=== PATIENT | female | born 1970 | race American Indian/Alaskan Native ===

== ENCOUNTER 2018-11-28 04:06 | Emergency (ER) | payer OTHER ==
[2018-11-28 04:07] VITALS: BMI 36.6
--- NOTE | 2018-11-28 04:39 | ED PDOC ---
Arrival/HPI - General Chief Complaint: Back Pain Time Seen by Provider: 11/28/18 04:16 Historian: Patient - History of Present Illness Narrative History of Present Illness (Text): 11/28/18 04:39 Stacy Kowalski is a 48 year old female, whose past medical history includes chronic asthma, who presents to the Emergency department complaining of wheezing, chest congestion, chills, and right-ear pain. Patient states symptoms are consistent with previous episodes of asthma. Patient notes she took Symbicort today with no significant improvement. Patient denies any shortness of breath, nausea, vomiting, diarrhea, urinary symptoms, back pain, neck pain, headache, dizziness, or any other complaints. Symptom Onset: Gradual Symptom Course: Unchanged Activities at Onset: Light Context: Home Past Medical History - Provider Review Nursing Documentation Reviewed: Yes - Infectious Disease Hx of Infectious Diseases: None - Tetanus Immunization Tetanus Immunization: Unknown - Cardiac Hx Cardiac Disorders: No - Pulmonary Hx Respiratory Disorders: Yes Hx Asthma: Yes - Neurological Hx Neurological Disorder: No - HEENT Hx HEENT Disorder: No - Renal Hx Renal Disorder: No - Endocrine/Metabolic Hx Endocrine Disorders: No Hx Adrenal Cancer: No - Hematological/Oncological Hx Blood Disorders: No - Integumentary Hx Dermatological Disorder: No - Musculoskeletal/Rheumatological Hx Falls: Yes (fell on sidewalk today) - Gastrointestinal Hx Gastrointestinal Disorders: No - Genitourinary/Gynecological Hx Genitourinary Disorders: No - Psychiatric Hx Psychophysiologic Disorder: No Hx Emotional Abuse: No Hx Physical Abuse: No Hx Substance Use: No - Past Surgical History Past Surgical History: No Previous - Anesthesia Hx Anesthesia: No - Suicidal Assessment Feels Threatened In Home Enviroment: No Family/Social History - Physician Review Nursing Documentation Reviewed: Yes Family/Social History: Unknown Family HX Smoking Status: Unknown If Ever Smoked Hx Alcohol Use: No Hx Substance Use: No Hx Substance Use Treatment: No Allergies/Home Meds Allergies/Adverse Reactions: Allergies aspirin Adverse Reaction (Verified 11/28/18 04:17) WHEEZING ketorolac [From Toradol] Adverse Reaction (Verified 11/28/18 04:17) WHEEZING Home Medications: Home Meds Medication Instructions Recorded Confirmed Budesonide/Formoterol Fumarate 1 aer IH DAILY 07/30/13 11/28/18 [Symbicort 80-4.5 Mcg Inhaler] Review of Systems - Physician Review All systems were reviewed & negative as marked: Yes - Review of Systems Constitutional: Other (+chills). absent: Fevers Eyes: Normal ENT: Other (+right ear pain) Respiratory: Wheezing Cardiovascular: Normal. absent: Chest Pain Gastrointestinal: Normal. absent: Abdominal Pain, Diarrhea, Nausea Genitourinary Female: Normal. absent: Dysuria, Frequency, Hematuria, Urine Output Changes Musculoskeletal: Normal. absent: Back Pain, Neck Pain Skin: Normal. absent: Rash Neurological: Normal Endocrine: Normal Hemo/Lymphatic: Normal Psychiatric: Normal Physical Exam Vital Signs Reviewed: Yes Vital Signs Temp Pulse Resp BP Pulse Ox 11/28/18 04:15 98.1 F 80 16 146/96 H 98 Temperature: Afebrile Blood Pressure: Hypertensive Pulse: Regular Respiratory Rate: Normal Appearance: Positive for: Well-Appearing, Non-Toxic, Comfortable Pain Distress: None Mental Status: Positive for: Alert and Oriented X 3 - Systems Exam Head: Present: Atraumatic, Normocephalic Pupils: Present: PERRL Extroacular Muscles: Present: EOMI Conjunctiva: Present: Normal Ears: Present: Normal, NORMAL TM, Normal Canal. No: Erythema, TM Bulging, Fluid, TM Perf Mouth: Present: Moist Mucous Membranes Pharnyx: Present: Normal. No: ERYTHEMA, EXUDATE, TONSILS ENLARGED, Peritonsilar Swelling, Uvular Deviation, Muffled/Hoarse Voice, Strider, Soft Palate/Uvular Edema Nose (External): Present: Atraumatic Nose (Internal): Present: Normal Inspection Neck: Present: Normal Range of Motion. No: Meningeal Signs, MIDLINE TENDERNESS, Paraspinal Tenderness Respiratory/Chest: Present: Clear to Auscultation, Good Air Exchange. No: Respiratory Distress, Accessory Muscle Use Cardiovascular: Present: Regular Rate and Rhythm, Normal S1, S2. No: Murmurs Abdomen: No: Tenderness, Distention, Peritoneal Signs Back: Present: Normal Inspection. No: CVA Tenderness, Midline Tenderness, Paraspinal Tenderness Upper Extremity: Present: Normal Inspection. No: Cyanosis, Edema Lower Extremity: Present: Normal Inspection. No: Edema Neurological: Present: GCS=15, CN II-XII Intact, Speech Normal Skin: Present: Warm, Dry, Normal Color. No: Rashes Psychiatric: Present: Alert, Oriented x 3, Normal Insight, Normal Concentration Medical Decision Making ED Course and Treatment: 11/28/18 04:39 Impression: 48 year old female complaining of chills, wheezing, and chest tightness. Plan: -- EKG -- Chest X-ray -- Rapid influenza -- Albuterol -- Reassess and disposition Progress Notes: Reviewed EKG, NSR at 75 bpm[address] Non-specific ST/T wave changes. 11/28/18 07:10 CXR reviewed, shows no acute processes. Rapid influenza negative. 11/28/18 07:16 On re-evaluation, patient feels better and is in no acute distress. I have discussed the results and plan with the patient, who expresses understanding. Patient in agreement with plan to be discharged home. Patient is stable for discharge. Patient was instructed to follow up with physician or return if symptoms worsen or new concerning symptoms arise. - Lab Interpretations Narrative Lab Interpretation (Text): 11/28/18 05:33 I have reviewed the lab results: Yes - RAD Interpretation Camp Attendant: ED Physician - EKG Interpretation Interpreted by ED Physician: Yes Type: 12 lead EKG - Scribe Statement The provider has reviewed the documentation as recorded by the Scribe Patti Brewer Provider Scribe Attestation: All medical record entries made by the Scribe were at my direction and personally dictated by me. I have reviewed the chart and agree that the record accurately reflects my personal performance of the history, physical exam, medical decision making, and the department course for this patient. I have also personally directed, reviewed, and agree with the discharge instructions and disposition. Disposition/Present on Arrival - Present on Arrival History of DVT/PE: No History of Uncontrolled Diabetes: No Urinary Catheter: No History of Decub. Ulcer: No History Surgical Site Infection Following: None - Disposition Diagnosis: Otitis media of right ear, Chest pain Disposition: HOME/ ROUTINE Disposition Time: 07:16 Patient Problems: Current Active Problems Problem Status Onset Chest pain Acute Otitis media of right ear Acute Discharge Instructions (ExitCare): Chest Pain That Is Not Caused by the Heart (DC), Ear Infections (Otitis Media) (DC), Chest Pain (ED) Prescriptions: Amoxicillin 875 mg PO BID #20 tab Forms: [employer] (Mauritanian)
[2018-11-28] MEDS ORDERED: Albuterol-Ipratrop 3 mg / 0.5 (3 ml) UD IH STA (04:44)
[2018-11-28 07:19] VITALS: BP 167/87; PULSE 77; RESP 18; TEMP 98.5; O2SAT 100
--- NOTE | 2018-11-28 09:41 | RAD ---
Date of service: 11/28/2018 HISTORY: sob COMPARISON: 07/30/2013 TECHNIQUE: Chest PA and lateral FINDINGS: LUNGS: No active pulmonary disease. PLEURA: No significant pleural effusion identified. No pneumothorax apparent. CARDIOVASCULAR: No aortic atherosclerotic calcification present. Normal cardiac size. No pulmonary vascular congestion. OSSEOUS STRUCTURES: No significant abnormalities. VISUALIZED UPPER ABDOMEN: Normal. OTHER FINDINGS: None. IMPRESSION: No active disease.
--- NOTE | 2018-11-28 12:36 | CARD ---
APPROVED REPORT Date of service: 11/28/2018 EKG Measurement Heart [id number] <Conclusion> Normal sinus rhythm Possible Left atrial enlargement LVH NSSTW changes Prolonged QTc
== END 2018-11-28 07:31 | disposition home or self-care (01) ==
LOC: ED 04:06
DX: H66.91 Otitis media, unspecified, right ear (principal); R07.89 Other chest pain

== ENCOUNTER 2019-03-06 13:25 | Emergency (ER) | payer OTHER ==
[2019-03-06 13:26] VITALS: BMI 36.6
[2019-03-06 13:48] VITALS: TEMP 98.4
--- NOTE | 2019-03-06 14:24 | ED PDOC ---
Arrival/HPI - General Chief Complaint: Shortness Of Breath Time Seen by Provider: 03/06/19 13:27 Historian: Patient - History of Present Illness Narrative History of Present Illness (Text): 03/06/19 13:27 Pt is a 48 y/o female, with a past medical history of asthma, who presents to the emergency department complaining of localized left flank pain since 2 days. Patient denies any trauma or physical activity to cause pain. She informs no previous history of current symptoms in her lifetime. Pt reports increased urinary frequency. Patient also notes wheezing and shortness of breath prior to arrival which has resolved in the ED. Patient denies fevers, chills, night sweats, vision changes, headache, dizziness, cough, chest pain, diarrhea, nausea, vomiting, bloody stool, dysuria, hematuria, back pain, neck pain, rash, diaphoresis, or any other complaint. Time/Duration: < week (2 days ) Symptom Onset: Sudden Symptom Course: Unchanged Activities at Onset: Light Context: Home Past Medical History - Provider Review Nursing Documentation Reviewed: Yes - Infectious Disease Hx of Infectious Diseases: None - Tetanus Immunization Tetanus Immunization: Unknown - Reproductive Menopause: No - Cardiac Hx Cardiac Disorders: No - Pulmonary Hx Respiratory Disorders: Yes Hx Asthma: Yes - Neurological Hx Neurological Disorder: No - HEENT Hx HEENT Disorder: No - Renal Hx Renal Disorder: No - Endocrine/Metabolic Hx Endocrine Disorders: No Hx Adrenal Cancer: No - Hematological/Oncological Hx Blood Disorders: No - Integumentary Hx Dermatological Disorder: No - Musculoskeletal/Rheumatological Hx Falls: Yes (fell on sidewalk today) - Gastrointestinal Hx Gastrointestinal Disorders: No - Genitourinary/Gynecological Hx Genitourinary Disorders: No - Psychiatric Hx Psychophysiologic Disorder: No Hx Emotional Abuse: No Hx Physical Abuse: No Hx Substance Use: No - Past Surgical History Past Surgical History: No Previous - Anesthesia Hx Anesthesia: No - Suicidal Assessment Feels Threatened In Home Enviroment: No Family/Social History - Physician Review Nursing Documentation Reviewed: Yes Family/Social History: Other (renal calculi) Smoking Status: Unknown If Ever Smoked Hx Alcohol Use: No Hx Substance Use: No Hx Substance Use Treatment: No Allergies/Home Meds Allergies/Adverse Reactions: Allergies aspirin Adverse Reaction (Verified 11/28/18 04:17) WHEEZING ketorolac [From Toradol] Adverse Reaction (Verified 11/28/18 04:17) WHEEZING Home Medications: Home Meds Medication Instructions Recorded Confirmed Budesonide/Formoterol Fumarate 1 aer IH DAILY 07/30/13 11/28/18 [Symbicort 80-4.5 Mcg Inhaler] Review of Systems - Review of Systems Constitutional: absent: Fevers, Night Sweats, Other (chills) Eyes: absent: Vision Changes Respiratory: SOB, Wheezing. absent: Cough Cardiovascular: absent: Chest Pain Gastrointestinal: absent: Abdominal Pain, Diarrhea, Nausea, Vomiting, Hematochezia Genitourinary Female: Frequency (increased urinary frequency), Other (left flank pain). absent: Dysuria, Hematuria Musculoskeletal: absent: Back Pain, Neck Pain Skin: absent: Rash Neurological: absent: Headache, Dizziness Physical Exam - Physical Exam Narrative Physical Exam (Text): 03/06/19 13:27 Gen: VS reviewed, alert, well developed, well nourished, nontoxic, mild distress. ENT: normal pharynx. Eye: EOMI, PERRL. Neck: no JVD, supple, no adenopathy. CV: regular rate, regular rhythm, no rubs, no murmur, no gallops, S1, S2, pulses equal and strong. Pulm/Chest: Mild to moderate left lateral lower rib cage tenderness to palpation with no underlying rash. No distress, clear to auscultation, no wheeze, no rhonchi, breath sounds equal, no rales. Abd: soft, nontender, no guarding, no rebound, no rigidity, normal bowel sounds. Ext: no edema. Skin: good color, no rash, no cyanosis. Psych: responds appropriately to questions, normal affect. Neuro: oriented x 3, CN2-12 intact grossly, motor intact, sensation intact. Vital Signs Reviewed: Yes Vital Signs Temp Pulse Resp BP Pulse Ox 03/06/19 13:42 98.4 F 94 H 20 140/82 100 Temperature: Afebrile Blood Pressure: Normal Pulse: Regular Respiratory Rate: Normal Appearance: Positive for: Well-Appearing, Non-Toxic, Comfortable Pain Distress: None Mental Status: Positive for: Alert and Oriented X 3 Medical Decision Making ED Course and Treatment: 03/06/19 13:56 Will work up for left flank pain. Ordering CT to rule out renal colic; patient appreciates positive family history 03/06/19 18:32 patient was given explanation that she is moderately anemic and that blood transfusion and admission is indicated. patient has flipped back and forth multiple times whether or not she wants to proceed with admission or transfusion as she needs her daughter to assist with medical decisions. the patient has ultimately decided she does not want a blood transfusion-patient was informed that it is important to follow up with her primary care doctor for the anemia. patient has also been hesistant in the same manner with CT. the patient has ultimately decided she would like to proceed with CT. 03/06/19 19:[address] meyer - RAD Interpretation Radiology Orders: 03/06/19 13:56 ABDOMEN & PELVIS [ABD & PELVIS W/O PO OR IV CONT] [CT] Stat - Medication Orders Current Medication Orders: Discontinued Medications Acetaminophen (Tylenol 325mg Tab) 975 mg PO STAT STA Stop: 03/06/19 13:58 - Scribe Statement The provider has reviewed the documentation as recorded by the Scribe Zelalem Gandhi All medical record entries made by the Scribe were at my direction and personally dictated by me. I have reviewed the chart and agree that the record accurately reflects my personal performance of the history, physical exam, medical decision making, and the department course for this patient. I have also personally directed, reviewed, and agree with the discharge instructions and disposition. Disposition/Present on Arrival - Present on Arrival Any Indicators Present on Arrival: No History of DVT/PE: No History of Uncontrolled Diabetes: No Urinary Catheter: No History of Decub. Ulcer: No History Surgical Site Infection Following: None - Disposition Have Diagnosis and Disposition been Completed?: Yes Diagnosis: Anemia, Fibroid uterus Disposition: HOME/ ROUTINE Disposition Time: 13:22 (not actual) Patient Plan: Discharge Condition: GUARDED Discharge Instructions (ExitCare): Anemia Caused by Low Iron, Uterine Fibroids (DC) Additional Instructions: you must follow up with your primary care doctor for complete evaluation of your low hemoglobin (anemia). Prescriptions: Budesonide/Formoterol Fumarate [Symbicort] 1 aer IH DAILY #1 aer Ferrous Sulfate [Ferosul] 325 mg PO DAILY #14 tablet Forms: [email or web address] (Maltese), WORK NOTE
[2019-03-06 15:37] LABS: BASO # 0.04 K/mm3 (0.0-2.0); BASO % 0.5 % (0.0-3.0); EOS # 0.3 (0.0-0.7); EOS % 3.1 % (1.5-5.0); HEMOGLOBIN 7.2 g/dL (12.0-16.0); LYMPH # 2.1 (1.2-3.4); LYMPH % 25.4 % (22.0-35.0); MEAN CELL VOLUME 69.2 fl (80.0-105.0); MEAN CORPUSCULAR HEMOGLOBIN 18.9 pg (25.0-35.0); MEAN CORPUSCULAR HGB CONC 27.4 g/dl (31.0-37.0); MEAN PLATELET VOLUME 8.6 fl (7.0-11.0); MONO # 0.5 (0.1-0.6); MONO % 6.5 % (1.0-6.0); RBC 3.8 10^6/uL (3.5-6.1); RED CELL DISTRIBUTION WIDTH 19.1 % (11.5-14.5); WHITE BLOOD COUNT 8.1 10^3/uL (4.5-11.0)
[2019-03-06 16:24] LABS: ALB/GLOB RATIO 1.1 (1.1-1.8); ALBUMIN 3.7 g/dL (3.0-4.8); ALT/SGPT 20 U/L (7-56); AST/SGOT 24 U/L (14-36); BLOOD UREA NITROGEN 12 mg/dL (7-21); CALCIUM 8.5 mg/dL (8.4-10.5); GFR NON-AFRICAN AMERICAN > 60
[2019-03-06 16:53] LABS: URINE BILIRUBIN NEGATIVE (NEGATIVE); URINE BLOOD TRACE-INTACT (NEGATIVE); URINE GLUCOSE (UA) NEGATIVE (NEGATIVE); URINE LEUKOCYTE ESTERASE NEGATIVE Leu/uL (NEGATIVE); URINE PROTEIN NEGATIVE mg/dL (<30 mg/dL); URINE UROBILINOGEN 0.2 E.U./dL (<1 E.U./dL)
[2019-03-06 16:54] LABS: URINE APPEARANCE CLEAR (CLEAR); URINE COLOR YELLOW (YELLOW)
[2019-03-06 17:06] LABS: URINE BACTERIA FEW /hpf
[2019-03-06 18:04] VITALS: RESP 18
--- NOTE | 2019-03-06 20:36 | ED PDOC ---
Physical Exam Vital Signs Temp Pulse Resp BP Pulse Ox 03/06/19 18:04 77 18 136/70 99 03/06/19 13:42 98.4 F 94 H 20 140/82 100 Medical Decision Making ED Course and Treatment: 03/06/19 19:00 Case endorsed to me by Dr. Mathew, pending CT, re-evaluation, and disposition. 03/06/19 21:48 CT Abdomen and Pelvis: LUNG BASES: The lung bases appear clear. No pleural effusions are seen. LIVER: Unremarkable. GALLBLADDER AND BILE DUCTS: The gallbladder appears within normal limits. No radioopaque gallstones are seen. No biliary ductal dilatation is evident. PANCREAS: Unremarkable. SPLEEN: Unremarkable. ADRENAL GLANDS: Unremarkable. KIDNEYS, URETERS, AND BLADDER: The kidneys appear within normal limits. There is no hydronephrosis or hydroureter. No urinary calculi are seen. The urinary bladder appeared normal in size and configuration. STOMACH AND BOWEL: Unremarkable appearance of the stomach and bowel. No evidence of bowel obstruction. No evidence suggesting enteritis or colitis. APPENDIX: No evidence of acute appendicitis on CT examination. PERITONEUM: No free fluid. No free air. LYMPH NODES: No lymphadenopathy is evident. REPRODUCTIVE: The uterine fundus is enlarged and bulbous which could be compatible with a large fibroid. The uterus measures approximately 15.7 x 10.1 x 12.4 cm in longitudinal, AP and transverse dimensions respectively. The possibility of adenomyosis should be considered. VASCULATURE: No evidence of abdominal aortic aneurysm. BONES: No aggressive appearing osseous lesion. No acute osseous pathology evident. IMPRESSION: 1. No acute intra-abdominal or pelvic abnormality. 2. Uterine enlargement with bulbous configuration of the uterine fundus. This could be compatible with a large uterine fibroid. Adenomyosis should also be considered. Electronically signed on Mar 06, 2019 9:45:06 PM EDT by: Zelalem Navas M.D., M.B.A., Certified By [employer] Trained MRI and CT Specialist pt improved will follow up with cloth trimmer hand - Lab Interpretations Lab Results: Total Bilirubin 0.4 mg/dL (0.2-1.3) 03/06/19 15:30 AST 24 U/L (14-36) 03/06/19 15:30 ALT 20 U/L (7-56) 03/06/19 15:30 Alkaline Phosphatase 49 U/L (38-126) 03/06/19 15:30 Total Protein 7.0 g/dL (5.8-8.3) 03/06/19 15:30 Albumin 3.7 g/dL (3.0-4.8) 03/06/19 15:30 Globulin 3.3 gm/dL 03/06/19 15:30 Albumin/Globulin Ratio 1.1 (1.1-1.8) 03/06/19 15:30 Urine Color Yellow (YELLOW) 03/06/19 16:20 Urine Appearance Clear (CLEAR) 03/06/19 16:20 Urine pH 6.0 (4.7-8.0) 03/06/19 16:20 Ur Specific Donald 1.025 (1.005-1.035) 03/06/19 16:20 Urine Protein Negative mg/dL (<30 mg/dL) 03/06/19 16:20 Urine Glucose (UA) Negative mg/dL (NEGATIVE) 03/06/19 16:20 Urine Ketones Negative mg/dL (NEGATIVE) 03/06/19 16:20 Urine Blood Trace-intact (NEGATIVE) H 03/06/19 16:20 Urine Nitrate Negative (NEGATIVE) 03/06/19 16:20 Urine Bilirubin Negative (NEGATIVE) 03/06/19 16:20 Urine Urobilinogen 0.2 E.U./dL (<1 E.U./dL) 03/06/19 16:20 Ur Leukocyte Esterase Negative Reese/uL (NEGATIVE) 03/06/19 16:20 Urine RBC 1 - 3 /hpf (0-2) H 03/06/19 16:20 Urine WBC 2 - 5 /hpf (0-6) 03/06/19 16:20 Ur Epithelial Cells 6 - 8 /hpf (0-5) H 03/06/19 16:20 Urine Bacteria Few /hpf (NONE) 03/06/19 16:20 - RAD Interpretation Radiology Orders: 03/06/19 18:23 ABDOMEN & PELVIS [ABD & PELVIS W/O PO OR IV CONT] [CT] Stat - Medication Orders Current Medication Orders: Discontinued Medications Acetaminophen (Tylenol 325mg Tab) 975 mg PO STAT STA Stop: 03/06/19 13:58 Last Admin: 03/06/19 14:53 Dose: 975 mg MAR Pain/Vitals Document 03/06/19 14:53 EQ (Rec: 03/06/19 14:53 EQ [id number]) Pain Reassessment Is This A Pain ReAssessment? No Sleep Is patient sleeping during reassessment? No Presence of Pain Presence of Pain Yes Acetaminophen (Tylenol 325mg Tab) 650 mg PO STAT STA Stop: 03/06/19 18:54 Last Admin: 03/06/19 18:56 Dose: 650 mg Disposition/Present on Arrival - Present on Arrival Any Indicators Present on Arrival: No History of DVT/PE: No History of Uncontrolled Diabetes: No Urinary Catheter: No History of Decub. Ulcer: No History Surgical Site Infection Following: None - Disposition Have Diagnosis and Disposition been Completed?: Yes Diagnosis: Anemia, Fibroid uterus Disposition: HOME/ ROUTINE Disposition Time: 00:30 Condition: STABLE Discharge Instructions (ExitCare): Anemia Caused by Low Iron, Uterine Fibroids (DC) Additional Instructions: you must follow up with your primary care doctor for complete evaluation of your low hemoglobin (anemia). Prescriptions: Ferrous Sulfate [Ferosul] 325 mg PO DAILY #14 tablet Budesonide/Formoterol Fumarate [Symbicort] 1 aer IH DAILY #1 aer Forms: [employer] (Swiss), WORK NOTE
[2019-03-06] MEDS ORDERED: TraMADol/Apap 37.5/325 mg Tab PO STA (21:50)
[2019-03-07 00:30] VITALS: BP 135/89; PULSE 76; O2SAT 100
--- NOTE | 2019-03-07 10:24 | CT ---
Date of service: 03/06/2019 PROCEDURE: CT Abdomen and Pelvis without intravenous contrast HISTORY: Left flank pain. COMPARISON: None. TECHNIQUE: Unenhanced. Neither IV nor oral contrast administered Radiation dose: Total exam DLP = 1101.42 mGy-cm. This CT exam was performed using one or more of the following dose reduction techniques: Automated exposure control, adjustment of the mA and/or kV according to patient size, and/or use of iterative reconstruction technique. FINDINGS: LOWER THORAX: Unremarkable. LIVER: Unremarkable. No gross lesion or ductal dilatation. GALLBLADDER AND BILE DUCTS: Unremarkable. PANCREAS: Unremarkable. No gross lesion or ductal dilatation. SPLEEN: Unremarkable. ADRENALS: Unremarkable. No mass. KIDNEYS AND URETERS: Unremarkable. No hydronephrosis. No solid mass. VASCULATURE: Unremarkable. No aortic aneurysm. No atherosclerotic calcification or mural plaque present. BOWEL: Unremarkable. No obstruction. No gross mural thickening. APPENDIX: Unremarkable. Normal appendix. PERITONEUM: Unremarkable. No free fluid. No free air. LYMPH NODES: Unremarkable. No enlarged lymph nodes. BLADDER: Unremarkable. REPRODUCTIVE: Markedly enlarged, anteverted uterus 9.5 x 10.6 x 15.3 cm. BONES: No acute fracture. OTHER FINDINGS: None. IMPRESSION: No abnormalities with respect to the kidneys, ureters or urinary bladder to account for the clinical presentation. Markedly enlarged anteverted presumably myomatous uterus.
== END 2019-03-07 00:30 | disposition home or self-care (01) ==
LOC: ED 13:25
DX: D25.9 Leiomyoma of uterus, unspecified (principal); D64.9 Anemia, unspecified